=== PATIENT | male | born 1945 | race Caucasian/White ===

== ENCOUNTER → 2016-11-10 | Outpatient (CLI) | payer MEDICARE ==
[~2016-11-10] MED LIST: AMLODIPINE BESY10 MG PO; BUMEX PO; CORDARONE200 M1 PO; COREG12.5 MG PO; COUMADIN2.5 MG PO; HYDRALAZINE HCL25 MG PO; LASIX20 MG PO; LEVEMIR SUBQ; LIPITOR40 MG PO; MINOXIDIL PO; NOVOLIN 70/30 V10 M1; SODIUM BICARBO650 MG PO; SYMBICORT INH
--- NOTE | ~2016-11-10 | CR63 ---
[facility] A Service of [facility] & [facility] RADIOLOGY TEXT RESULTS PATIENT: BILLY OSORIO LOCATION: [facility] : 47 UNIT #: [id number] AGE: [address]: THERESA GIRARD SEX: M ORDER DR: [id number] [facility] [address] [place], [place] [address] [id number] O MR#: [id number] Acc #: [id number] NAME: BILLY OSORIO : 1945 SEX: M STUDY DATE/TIME: 11/10/2016 15:03 UNIT: [facility] ROOM: STUDY DESCRIPTION: CR Chest 2 View Attending Physician: Theresa Girard Referring Physician: Theresa Girard Ordering Physician: Staff Doctor Not On Primary Care Physician: No Primary Care Physician MEDICAL IMAGING REPORT This report is preliminary unless electronic signature is present EXAM Chest, 11/10/16, [facility]. HISTORY 71-year-old male patient with history of end-stage renal disease. Cough past 2 days. Preop for dialysis catheter placement. COMPARISON Chest, 07/21/16. FINDINGS Two-view chest demonstrates normal stable cardiac size and configuration. Hilar structures and mediastinal contours are normal. Right neck approach double-lumen catheter remains stable and well positioned. Bilateral lungs are expanded and clear. Costophrenic angles are preserved. IMPRESSION No acute chest finding. Right approach double-lumen catheter terminates mid SVC. Dictated by... Bryson Talley M.D. THIS IS AN ELECTRONICALLY VERIFIED REPORT Bryson Talley M.D. at 11/11/2016 9:39 AM SRI/satnam TD: 11/10/2016 18:48 JOB #: [id number] MEDICAL IMAGING REPORT Page 1 of 1 COPY
[2016-11-10 15:09] LABS: BUN/CREATININE RATIO 6.37; CALCIUM SERUM 8.7 mg/dL (8.4-10.2); CREATININE SERUM 5.8 mg/dL (0.6-1.4); GLOM FILT RATE Estimated 9.1 mL/min (>60); POTASSIUM 3.9 mmol/L (3.5-5.1)
== END | disposition home or self-care (01) ==
LOC: CRAD 14:22
PROVIDERS: Nurse Practitioner Family
DX: Z01.818 Encounter for other preprocedural examination (principal); N18.6 End stage renal disease
CPT/HCPCS: 36415; 71020; 80048